=== PATIENT | male | born 1975 | race Caucasian/White ===

== ENCOUNTER → 2019-02-20 | Outpatient (REF) | payer OTHER ==
[2019-02-20 12:48] LABS: CHOLESTEROL RISK RATIO 3.123 (<5)
== END ==
LOC: M SFHCLERA 10:12
PROVIDERS: ATTEND Family Medicine
DX: Z13.220 Encounter for screening for lipoid disorders (principal)

== ENCOUNTER → 2019-09-16 | Outpatient (REF) | payer OTHER ==
[2019-09-16 11:34] LABS: BASO % 0.3 % (0.0-1.0); EOS # 0.1 10^3/uL (0.0-0.5); EOS % 0.9 % (0.0-3.0); HEMATOCRIT 51.4 % (42.0-52.0); HEMOGLOBIN 16.5 g/dl (13.5-17.5); LYMPH # 2.6 10^3/uL (1.5-5.0); LYMPH % 26.4 % (24.0-44.0); MEAN CORPUSCULAR HEMOGLOBIN 30.3 pg (27.0-33.0); MEAN CORPUSCULAR HGB CONC 32.1 g/dl (32.0-36.5); MEAN CORPUSCULAR VOLUME 94.3 fl (80.0-96.0); MONO # 0.7 10^3/uL (0.0-0.8); MONO % 6.6 % (0.0-5.0); NEUTROPHILS # 6.5 10^3/uL (1.5-8.5); NEUTROPHILS % 65.4 % (36.0-66.0); PLATELET COUNT, AUTOMATED 248 10^3/uL (150-450); RED BLOOD COUNT 5.45 10^6/uL (4.30-6.10)
[2019-09-16 11:56] LABS: ALT/SGPT 53 U/L (12-78); BILIRUBIN,TOTAL 0.9 MG/DL (0.2-1.0); BLOOD UREA NITROGEN 14 MG/DL (7-18); C REACTIVE PROTEIN QUANTITATIV < 0.30 MG/DL (0.00-0.30); CARBON DIOXIDE LEVEL 29 MEQ/L (21-32); CHLORIDE LEVEL 104 MEQ/L (98-107); CK-MB VALUE MASS 1.3 NG/ML (<3.6); CPK CREATINE PHOSPHOKINASE 290 U/L (39-308); CREATININE FOR GFR 0.97 MG/DL (0.70-1.30); GLOMERULAR FILTRATION RATE > 60.0 (>60); GLUCOSE, FASTING 88 MG/DL (70-100); MB/CK RELATIVE INDEX 0.45 (< OR =4); POTASSIUM SERUM 4.4 MEQ/L (3.5-5.1); SODIUM LEVEL 142 MEQ/L (136-145); TOTAL PROTEIN 7.5 GM/DL (6.4-8.2)
[2019-09-16 12:19] LABS: ERYTHROCYTE SEDIMENTATION RATE 1 mm/hr (0-15)
[2019-09-18 00:06] LABS: ANA (HEP2) Negative (.); Lyme Disease IgG/IgM Antibodie <0.91 ISR (0.00-0.90); Lyme Disease IgM Ab Quantitati <0.80 index (0.00-0.79)
== END ==
LOC: M SFHCLERA 09:01
PROVIDERS: ATTEND Family Medicine
DX: M25.531 Pain in right wrist (principal); M62.81 Muscle weakness (generalized)

== ENCOUNTER 2025-05-08 18:33 | Emergency (ER) | payer BC, OTHER ==
[~2025-05-08] VITALS: Ht 177.8 cm; Wt 70.4 kg
[2025-05-08 19:28] LABS: BASO # 0.0 10^3/uL (0.0-0.2); BASO % 0.3 % (0.0-1.0); EOS # 0.2 10^3/uL (0.0-0.5); EOS % 1.5 % (0.0-3.0); LYMPH # 3.6 10^3/uL (1.5-5.0); LYMPH % 36.6 % (24.0-44.0); MONO # 0.6 10^3/uL (0.0-0.8); MONO % 6.5 % (2.0-8.0); NEUTROPHILS # 5.4 10^3/uL (1.5-8.5); NEUTROPHILS % 54.9 % (36.0-66.0); PLATELET COUNT, AUTOMATED 219 10^3/uL (150-450)
[2025-05-08 19:51] LABS: CALCIUM LEVEL 8.9 MG/DL (8.5-10.1); CARBON DIOXIDE LEVEL 27 MMOL/L (20-31); CHLORIDE LEVEL 103 MMOL/L (98-107); CK-MB VALUE MASS < 1.0 NG/ML (<3.6); CREATININE FOR GFR 1.00 MG/DL (0.70-1.30); GLOMERULAR FILTRATION RATE > 90.0 (>60); POTASSIUM SERUM 4.1 MMOL/L (3.5-5.1); SODIUM LEVEL 141 MMOL/L (136-145)
[2025-05-08 20:07] LABS: CPK CREATINE PHOSPHOKINASE 154 U/L (46-171)
[2025-05-08 20:54] LABS: CK-MB VALUE MASS 1.5 NG/ML (<3.6)
[2025-05-08 20:56] LABS: CPK CREATINE PHOSPHOKINASE 152.0 U/L (46-171); MB/CK RELATIVE INDEX 0.98 (< OR =4)
[2025-05-08] MEDS ORDERED: ISOVUE-370 76% 100 ML VIAL As Ordered ONE (21:05)
[2025-05-08] MEDS: ONDANSETRON 4MG 2ML VIAL IV ONE (21:32)
[2025-05-08] MEDS: NS (Normal Saline) 0.9% 1,000 ML IV ONE (21:32)
[2025-05-08] MEDS ORDERED: PROA1AER2 INH (23:13)
[2025-05-08] MEDS: ALBUTEROL 90 MCG/ACT 8 GM HFA INHALER INH ONE (23:43)
[2025-05-09] VITALS: BP 111/64
[2025-05-09] MEDS: ALBUTEROL 90 MCG/ACT 8 GM HFA INHALER INH ONE (00:09)
[2025-05-09 00:15] VITALS: TEMP 96.7; O2SAT 99
== END 2025-05-09 00:18 | disposition home or self-care (01) ==
LOC: M ED 18:33
DX: R06.00 Dyspnea, unspecified (principal); R07.89 Other chest pain; R00.1 Bradycardia, unspecified; Z79.51 Long term (current) use of inhaled steroids
CPT/HCPCS: 71045; 71275; 80048; 82550; 82553; 84484; 85025; 87486; 87581; 87633; 87798; 93005; 93041; 94760; 96361; 96374; 99285; J2405; Q9967